=== PATIENT | female | born 1950 | race African-American/Black ===

== ENCOUNTER 2021-02-27 21:57 | Emergency (ER) | payer MEDICARE, OTHER ==
[~2021-02-27 21:57] MED LIST: ANUCORT-HC25 MG PR; COLACE100 MG PO; HCTZ12.5 MG PO; LEVO-T88 MCG PO; PRINIVIL20 MG PO; PROCTOZONE-HC 230 GM TOP; TOPROL XL25 MG PO
[2021-02-28 03:58] LABS: BILIRUBIN NEGATIVE (NEGATIVE); BLOOD NEGATIVE Ery/uL (NEGATIVE); CLARITY CLEAR (CLEAR); COLOR YELLOW (YELLOW); GLUCOSE (U) NORMAL (NORMAL); LEUKOCYTES 1+ Leu/uL (NEGATIVE); NITRITE NEGATIVE (NEGATIVE); PROTEIN NEGATIVE (NEGATIVE); SPECIFIC GRAVITY <=1.005 (1.001-1.030); UROBILINOGEN 0.2 mg/dL (0.2-1.0)
[2021-02-28 04:04] LABS: BASOPHIL 0.8 % (0-2); EOSINOPHIL 7.7 % (0-7); HCT 38.5 % (37.0-47.0); HGB 13.2 g/dl (12.5-16.0); LYMPHOCYTE 25.1 % (15-48); MCH 30.1 pg (25.0-31.0); MCHC 34.3 g/dL (32.0-36.0); MCV 87.7 fL (78.0-100.0); MONOCYTE 9.8 % (0-12); MPV 8.8 fL (6.0-9.5); NEUTROPHIL 56.2 % (41-80); NRBC 0; PLT 221 K/uL (150-400); RBC 4.39 M/uL (4.20-5.40); RDW 12.3 % (11.5-14.0); WBC 5.2 K/uL (4.0-10.5)
[2021-02-28 04:06] LABS: BACTERIA TRACE; URINARY WBC RARE
[2021-02-28 04:34] LABS: ALBUMIN 3.1 g/dL (3.4-5.0); BILIRUBIN - TOTAL 0.5 mg/dL (0.2-1.0); BUN/CREAT RATIO (CALC) 18.1 RATIO; C-REACTIVE PROTEIN 3.9 mg/dL (<=0.90); CREATININE 1.05 mg/dL (0.51-0.95); GLOBULIN (CALCULATION) 4.3 g/dL; PHOSPHORUS 3.4 mg/dL (2.6-4.7); TOTAL PROTEIN 7.4 g/dL (6.4-8.2)
== END 2021-02-28 05:49 | disposition home or self-care (01) ==
LOC: FER 21:57
PROVIDERS: Emergency Medicine Emergency Medical Services
DX: R09.89 Other specified symptoms and signs involving the circulatory and respiratory systems (principal); E87.6 Hypokalemia; I10 Essential (primary) hypertension; Z88.5 Allergy status to narcotic agent; Z79.899 Other long term (current) drug therapy
CPT/HCPCS: 36415; 80053; 81001; 83735; 84100; 84443; 84484; 85025; 86140; 93005